=== PATIENT | male | born 1930 | race Caucasian/White ===

== ENCOUNTER → 2018-08-11 | Outpatient (CLI) | payer MEDICARE | LOC: COL.RAD 09:35 | DX: S32.030D Wedge compression fracture of third lumbar vertebra, subsequent encounter for fracture with routine healing (principal) | CPT/HCPCS: A9503 ==

== ENCOUNTER 2018-08-19 11:32 | Outpatient (CLI) | payer MEDICARE ==
[2018-08-19] VITALS (8 sets, daily range): BP systolic 115–149; BP diastolic 74–108; PULSE 84–112; TEMP 98
[~2018-08-19] VITALS: Ht 180.3 cm; Wt 79.0 kg
[2018-08-19 12:29] LABS: INR 1.5 (0.8-3.0); PROTHROMBIN TIME 16.7 SECONDS (9.7-12.8)
[2018-08-19] MEDS ORDERED: SYNTHROID0.1 MG/TAB PO (12:50)
[2018-08-19] MEDS ORDERED: NITROSTAT0.4 MG/TAB SL (12:51)
[2018-08-19] MEDS ORDERED: TOPROL XL 50MG50 MG PO (12:51)
[2018-08-19] MEDS ORDERED: CYANOCOBAL1000 MCG/M IM (12:52)
== END 2018-08-19 18:42 | disposition home or self-care (01) ==
LOC: COL.CAR 11:32
PROVIDERS: Radiology Diagnostic Radiology
DX: S32.039A Unspecified fracture of third lumbar vertebra, initial encounter for closed fracture (principal); S32.049A Unspecified fracture of fourth lumbar vertebra, initial encounter for closed fracture; I48.91 Unspecified atrial fibrillation; Z87.891 Personal history of nicotine dependence
CPT/HCPCS: J2250; J3010; J7120

== ENCOUNTER 2018-10-01 18:22 | Emergency (ER) | payer MEDICARE ==
[~2018-10-01] VITALS: Ht 188 cm; Wt 81.8 kg
[~2018-10-01 18:22] MED LIST: CYANOCOBAL1000 MCG/M IM; NITROSTAT0.4 MG/TAB SL; SYNTHROID0.1 MG/TAB PO; TOPROL XL 50MG50 MG PO
[2018-10-01 19:12] LABS: BASO # 0.1 (0.0-0.2); BASO % 0.6 % (0.0-2.0); EOS % 0.5 % (0-4.0); GRAN # 6.7 (1.4-6.5); GRAN % 76.5 % (42.2-75.2); HEMATOCRIT 38.2 % (42.0-52.0); HEMOGLOBIN 12.5 g/dl (13.5-18.0); LYMPH % 11.5 % (20.0-51.0); MEAN CELL VOLUME 90 fl (80.0-100.0); MEAN CORPUSCULAR HEMOGLOBIN 29 pg (27.0-31.0); MEAN CORPUSCULAR HGB CONC 33 g/dl (33.0-37.0); MEAN PLATELET VOLUME 9.9 fl (7.4-10.4); MONO # 0.9 (0.1-0.6); MONO % 10.4 % (1.7-9.3); PLATELET COUNT 220 K/mm3 (130-400); RED BLOOD COUNT 4.26 M/mm3 (4.20-5.60); REDCELL DISTRIBUTION WIDTH-CV 14.5 % (11.5-14.5)
[2018-10-01 19:27] LABS: ALBUMIN 4.2 gm/dL (3.5-5.0); BILIRUBIN,TOTAL 0.8 mg/dL (0.0-1.0); CALCIUM 9.3 mg/dL (8.4-10.2); CREATININE, serum 0.94 mg/dL (0.66-1.25); POTASSIUM 4.3 mmol/L (3.4-5.0); TOTAL PROTEIN 7.3 gm/dL (6.4-8.2)
[2018-10-01 19:42] LABS: COLLECTION METHOD CLEAN CATCH
[2018-10-01 19:43] LABS: ERYTHROCYTE SEDIMENTATION RATE 4 mm/hr (0-30)
[2018-10-01 19:59] LABS: PH 5 (5-8); SQUAMOUS EPITHELIAL None Seen /hpf; URINE APPEARANCE Clear; URINE BACTERIA None Seen /hpf; URINE BILIRUBIN Negative (NEGATIVE); URINE BLOOD Negative (NEGATIVE); URINE COLOR Yellow; URINE GLUCOSE Negative (NEGATIVE); URINE KETONE Negative (NEGATIVE); URINE LEUKOCYTE ESTERASE Negative (NEGATIVE); URINE NITRATE Negative (NEGATIVE); URINE PROTEIN(semi-quant) Negative (NEGATIVE); URINE UROBILINOGEN Negative (NEGATIVE)
[2018-10-01] MEDS ORDERED: NORCO 325 MG-51 TAB PO (20:43)
[2018-10-01 21:43] VITALS: BP 144/104; PULSE 108
[2018-10-01] MEDS ORDERED: COUMADIN 22.5 MG/TAB PO (22:22)
== END 2018-10-01 21:43 | disposition home or self-care (01) ==
LOC: COL.ER 18:22
PROVIDERS: Emergency Medicine
DX: M54.5 Low back pain (principal); I25.10 Atherosclerotic heart disease of native coronary artery without angina pectoris; I48.91 Unspecified atrial fibrillation; Z87.81 Personal history of (healed) traumatic fracture
CPT/HCPCS: J2405; J3010

== ENCOUNTER → 2018-10-29 | Outpatient (CLI) | payer MEDICARE ==
[~2018-10-29] MED LIST changes: +COUMADIN 22.5 MG/TAB PO; +NORCO 325 MG-51 TAB PO
== END ==
LOC: COL.RAD 12:47
DX: S32.030D Wedge compression fracture of third lumbar vertebra, subsequent encounter for fracture with routine healing (principal); S32.010A Wedge compression fracture of first lumbar vertebra, initial encounter for closed fracture; S32.020A Wedge compression fracture of second lumbar vertebra, initial encounter for closed fracture; R18.8 Other ascites; Z98.890 Other specified postprocedural states
CPT/HCPCS: Q9967

== ENCOUNTER 2018-11-03 10:20 | Outpatient (CLI) | payer MEDICARE | END 2018-11-03 16:45 | disposition home or self-care (01) | LOC: COL.CAR 10:20 | DX: S32.010A Wedge compression fracture of first lumbar vertebra, initial encounter for closed fracture (principal); S32.020A Wedge compression fracture of second lumbar vertebra, initial encounter for closed fracture; I48.91 Unspecified atrial fibrillation; R60.0 Localized edema; E03.9 Hypothyroidism, unspecified; I25.10 Atherosclerotic heart disease of native coronary artery without angina pectoris; E78.5 Hyperlipidemia, unspecified; K21.9 Gastro-esophageal reflux disease without esophagitis; E53.8 Deficiency of other specified B group vitamins; G31.84 Mild cognitive impairment of uncertain or unknown etiology; R53.81 Other malaise; Z95.0 Presence of cardiac pacemaker; Z87.891 Personal history of nicotine dependence; Z79.01 Long term (current) use of anticoagulants; Z79.82 Long term (current) use of aspirin; Z95.1 Presence of aortocoronary bypass graft; Z80.9 Family history of malignant neoplasm, unspecified; Z82.3 Family history of stroke; Z82.5 Family history of asthma and other chronic lower respiratory diseases ==

== ENCOUNTER → 2018-11-11 | Outpatient (CLI) | payer MEDICARE ==
[~2018-11-11] MED LIST changes: +ASPIRIN 81M81 MG/TA2 PO; +CARDIZEM 30MG T30 MG PO; +DULCOLAX S10 MG/SUPP RC; +FLOMAX 0.40.4 MG/CAP PO; +IMODIUM 2MG CAPS2 MG PO; +LASIX 20MG TABL20 MG PO; +MEPHYTON 5MG5 MG/TAB PO; +MIACALCIN NASA3.7 ML NS; +MILK OF MA400 MG/52 PO; +MULTI VITAMINS1 TAB PO; +MYLANTA 150 ML150 M1 PO; +NATURAL E400 IU PO; -TOPROL XL 50MG50 MG PO; +TOPROL XL200 MG PO; +TYLENOL 325MG325 MG PO; +TYLENOL SU650 MG/SUP RC; +VITAMIN C500 MG PO
[2018-11-11 11:30] LABS: CALCIUM 8.4 mg/dL (8.4-10.2); CREATININE, serum 0.87 mg/dL (0.66-1.25); POTASSIUM 4.2 mmol/L (3.4-5.0)
== END ==
LOC: ZCOL.LAB 10:38
PROVIDERS: Internal Medicine
DX: E87.5 Hyperkalemia (principal)

== ENCOUNTER → 2018-11-21 | Outpatient (CLI) | payer MEDICARE | LOC: COL.RAD 10:14 | DX: K44.9 Diaphragmatic hernia without obstruction or gangrene (principal); I25.10 Atherosclerotic heart disease of native coronary artery without angina pectoris; I51.7 Cardiomegaly; J90 Pleural effusion, not elsewhere classified; J47.9 Bronchiectasis, uncomplicated; Z98.890 Other specified postprocedural states ==

== ENCOUNTER → 2018-12-02 | Outpatient (CLI) | payer MEDICARE | LOC: COL.RAD 09:44 | DX: S32.010D Wedge compression fracture of first lumbar vertebra, subsequent encounter for fracture with routine healing (principal); S32.020D Wedge compression fracture of second lumbar vertebra, subsequent encounter for fracture with routine healing; S22.080A Wedge compression fracture of T11-T12 vertebra, initial encounter for closed fracture | CPT/HCPCS: A9503 ==